=== PATIENT | male | born 1995 | race African-American/Black ===

== ENCOUNTER 2017-04-25 20:38 | Emergency (ER) | payer OTHER ==
[~2017-04-25] VITALS: Ht 177.8 cm; Wt 93.0 kg
[~2017-04-25 20:38] MED LIST: BACTRIM DS TAB1 EACH PO; NOHOMEMEDICATIONS; NORCO 5-325 TA1 EACH PO
[2017-04-25] MEDS ORDERED: BACTRIM DS TAB1 EACH PO (22:04)
[2017-04-25] MEDS ORDERED: IBUPROFEN 800800 M1 PO (22:04)
[2017-04-25 22:28] VITALS: BP 131/65
== END 2017-04-25 22:28 | disposition home or self-care (01) ==
LOC: ER 20:38
DX: L02.412 Cutaneous abscess of left axilla (principal)

== ENCOUNTER 2017-10-11 11:13 | Emergency (ER) | payer OTHER ==
[~2017-10-11] VITALS: Ht 177.8 cm; Wt 90.7 kg
[~2017-10-11 11:13] MED LIST changes: +IBUPROFEN 800800 M1 PO
[2017-10-11] MEDS ORDERED: CHILDREN'S100 MG/59 PO (12:25)
== END 2017-10-11 12:35 | disposition home or self-care (01) ==
LOC: ER 11:13
DX: J11.1 Influenza due to unidentified influenza virus with other respiratory manifestations (principal)